=== PATIENT | male | born 1940 | race Caucasian/White ===

== ENCOUNTER 2020-02-08 21:07 | Observation (INO) ==
[2020-02-08 21:29] LABS: Basophils # (auto) 0.04 K/uL (0-0.2); Basophils % (auto) 0.4 %; Eosinophils # (auto) 0.22 K/uL (0-0.5); Eosinophils % (auto) 2.1 %; Hematocrit (blood only) 44.4 % (42-52); Hemoglobin 15.6 g/dL (14.0-18.0); Immature Granulocytes # (auto) 0.03 K/uL (0.00-0.02); Immature Granulocytes % (auto) 0.3 %; Mean Corpuscular Hemoglobin 36.1 pg (25-34); Mean Corpuscular Hgb Conc 35.1 g/dL (32-36); Mean Corpuscular Volume 102.8 fL (80-100); Mean Platelet Volume 11.5 fL (7.4-10.4); Monocytes # (auto) 1.43 K/uL (0.11-0.59); Monocytes % (auto) 13.5 %; Neutrophils # (auto) 5.61 K/uL (1.4-6.5); Neutrophils % (auto) 52.7 %; Platelet Count 171 K/uL (130-400); RDW Coefficient of Variation 12.1 % (11.5-14.5); Red Blood Count 4.32 M/uL (4.7-6.1); White Blood Count 10.63 K/uL (4.8-10.8)
[2020-02-08] MEDS ORDERED: NITROGLYCERIN 2% OINTMENT 30GM TUBE ONE (21:32)
[2020-02-08 21:37] LABS: iSTAT Creatinine 1.3 mg/dl (0.6-1.3); iSTAT Hemoglobin 15.6 g/dl (14.0-18.0); iSTAT Ionized Calcium 1.17 mmol/l (1.12-1.32); iSTAT Potassium 3.8 mmol/L (3.3-5.0)
[2020-02-08] MEDS ORDERED: NITROGLYCERIN 2% OINTMENT 30GM TUBE EXT STA (21:37)
[2020-02-08 21:40] LABS: Partial Thromboplastin Time 26.7 Seconds (21.0-31.0); Prothrombin Time 10.5 Seconds (9.0-12.0)
--- NOTE | 2020-02-08 21:47 | XRay Report ---
XR chest 1V portable CLINICAL HISTORY: Chest Pain pain COMPARISON STUDY: No previous studies for comparison. FINDINGS: The bones soft tissues and hemidiaphragms are normal. The cardiomediastinal silhouette is n ormal. The lungs are clear. The pulmonary vasculature is normal. IMPRESSION: Negative chest. ACT 112: Negative or not required by law. The above report was generated using voice recognition software. It may contain grammatical, syntax or spelling errors. Electronically signed by: Camacho Santana M.D. 02/08/2020 9:45 PM
[2020-02-08 21:52] LABS: Alanine Aminotransferase 48 U/L (12-78); Albumin Globulin Ratio 1.1 (0.9-2); Albumin Level 4.1 gm/dl (3.4-5.0); Alkaline Phosphatase 76 U/L (45-117); BUN Creatinine Ratio 10.3 (10-20); Bilirubin,Total 0.3 mg/dl (0.2-1); Blood Urea Nitrogen 12 mg/dl (7-18); Calcium 8.7 mg/dl (8.5-10.1); Carbon Dioxide 24 mmol/L (21-32); Chloride 108 mmol/L (98-107); Creatine Kinase MB 5.6 ng/ml (0.5-3.6); Creatinine Clr Calc Pharmacy 54.8 ml/min; Est GFR (African American) 68.1; Est GFR (Non-African American) 58.7; Globulin 3.7 gm/dl (2.5-4.0); Glucose 112 mg/dl (70-99); Lipase 117 U/L (73-393); Total Protein 7.8 gm/dl (6.4-8.2); Troponin I < 0.015 ng/ml (0-0.045)
[2020-02-08 21:58] LABS: Potassium 3.9 mmol/L (3.5-5.1); Sodium 140 mmol/L (136-145)
[2020-02-08 22:03] LABS: Aspartate Aminotransferase 27 U/L (15-37); Creatine Kinase 371 U/L (39-308)
--- NOTE | 2020-02-08 22:06 | Emergency Department Note ---
History of Present Illness General Chief complaint: Chest Pain Stated complaint: Chest Pain Time Seen by Provider: 02/08/20 21:16 Source: patient, EMS, RN notes reviewed and old records reviewed Mode of arrival: EMS Limitations: no limitations History of Present Illness Provider complaint: Chest pain Onset (ago): hour(s) 1 Location: chest Radiation: back Severity: severe Pain Consistency: + now resolved Maximum Pain Intensity: 3 Current Pain Intensity: 0 Quality: + aching Relieved By: + medication (Nitro) Exacerbated By: + movement Associated symptoms: + denies other symptoms; no diaphoresis, no fever/chills, no headaches, no nausea/vomiting and no shortness of breath Treatments prior to arrival: aspirin and other (Nitro) This is an 79-year-old male who presents emergency department complaining of chest pain that has been ongoing for the past 10 days. The patient reports he w ent to his primary care physician's office yesterday and was given meloxicam for the pain. This evening the patient ate dinner and took his meloxicam and then began experiencing severe 10 out of 10 pressure in his chest. The patient could not breathe due to the pain and thought he was having a heart attack. He denies any heart history whatsoever including hypertension. He reports he has never smoked and reports no family history. He was given nitro by EMS who was summoned. He reports becoming pain-free after be given the nitro. Upon arrival to the emergency department here the patient is pain-free. Home Medications Home Medications Medication Instructions Recorded Confirmed Type meloxicam 0 mg PO DAILY 02/08/20 02/08/20 History Allergies Allergy/AdvReac Type Severity Reaction Status Date / Time No Known Allergies Allergy Verified 02/08/20 21:59 Past Med/Surg History Social History Preferred Language: Northern Irish Feels Safe at Home: Yes Smoking Status: Never smoker Review of Systems A total of 10 systems reviewed and were otherwise negative Physical Exam Vital Signs Vital Signs - 24 hr 02/08/20 21:07 02/08/20 21:11 02/08/20 21:18 Temperature 36.7 C Temperature Source Oral Pulse Rate 92 H 87 87 Pulse Rate [Apical] Pulse Rate from SpO2 Sensor 88 87 Respiratory Rate 18 21 Respiratory Effort / Characteristics Non-Labored Respiratory Depth Normal Blood Pressure 174/105 H 174/105 H Blood Pressure [Left Arm] Blood Pressure Mean 128 128 Blood Pressure Mean [Left Arm] Pulse Oximetry 96 93 93 Oxygen Delivery Method Room Air Sepsis Recent Fever Within 48 Hours No Sepsis New/Unexplained Change in Mental Status No Sepsis Action Taken by Nursing No Action Required 02/08/20 21:20 02/08/20 21:30 02/08/20 22:00 Temperature Temperature Source Pulse Rate 86 81 Pulse Rate [Apical] Pulse Rate from SpO2 Sensor 81 76 Respiratory Rate 20 22 Respiratory Effort / Characteristics Respiratory Depth Blood Pressure 148/94 H 159/91 H Blood Pressure [Left Arm] Blood Pressure Mean 119 102 Blood Pressure Mean [Left Arm] Pulse Oximetry 94 91 Oxygen Delivery Method Room Air Sepsis Recent Fever Within 48 Hours Sepsis New/Unexplained Change in Mental Status Sepsis Action Taken by Nursing 02/08/20 22:30 02/08/20 23:13 02/08/20 23:59 Temperature Temperature Source Pulse Rate 84 Pulse Rate [Apical] 81 77 Pulse Rate from SpO2 Sensor Respiratory Rate 17 18 18 Respiratory Effort / Characteristics Respiratory Depth Blood Pressure 167/98 H Blood Pressure [Left Arm] 141/94 H 170/96 H Blood Pressure Mean 106 Blood Pressure Mean [Left Arm] 109 120 Pulse Oximetry 95 96 94 Oxygen Delivery Method Room Air Room Air Sepsis Recent Fever Within 48 Hours Sepsis New/Unexplained Change in Mental Status Sepsis Action Taken by Nursing VITAL SIGNS - Vital signs and nursing notes were reviewed. GENERAL - 79-year-old male appearing stated age who is in no acute distress. Communicates well with provider and answers questions appropriately. SKIN - Without rashes. HEAD - NC/AT. EYES - PERRL with EOMI bilaterally. Sclera anicteric. Palpebral conjunctiva pink and moist with no injection noted. EARS - No deformities of external structures noted on gross examination bilaterally. No pain elicited with palpation of the tragus bilaterally. External auditory canals without discharge or otorrhea. Tympanic membranes pearly bryant without retraction or bulging. No fluid or purulent material visualized behind the TM. Handle of malleus, umbo, cone of light, pars tensa/flaccid all easily visualized. NOSE - Midline and without cyanosis. No epistaxis or purulent drainage noted. S eptum midline without deviation or septal hematoma noted. MOUTH/OROPHARYNX - Without perioral cyanosis. Buccal mucosa pink and moist and without leukoplakia. Tongue midline with equal elevation of palate bilaterally. No tonsillar hypertrophy, erythema, or exudates noted. dentition noted. NECK - Neck with FROM. Supple to palpation. lymphadenopathy noted. No nuchal rigidity. LUNGS - Chest wall symmetric without accessory muscle use, intercostals retractions, or central cyanosis. Normal vesicular breath sounds CTA B/L. No wheezes, rales, or rhonchi appreciated. CARDIAC - RRR with S1/S2. No murmur, rubs, or gallops appreciated. ABDOMEN - Abdominal contour without pulsations or visible masses. BS normoactive all four quadrants. No tenderness, palpable masses, hepatosplenomegaly, or ascites noted. EXTREMITIES - No clubbing or peripheral cyanosis. No pretibial edema present. +3/5 radial, posterior tibial, and dorsalis pedis pulses palpated throughout. +5/5 strength noted in UE/LE bilaterally. NEUROLOGIC - Cranial nerves II through XII grossly intact. Sensory intact to light touch throughout. Patellar reflexes +2/4. PSYCH - A&Ox3 and cooperates fully with examiner. Pt is very pleasant and interacts well with examiner. Course Administered Medications Discontinued Medications Nitroglycerin (Nitro-Bid 2%) Confirm Administered Dose 18 inch .ROUTE .STK-MED ONE Stop: 02/08/20 21:33 Last Admin: 02/08/20 21:37 Dose: 1 inch Documented by: [id number] Nitroglycerin (Nitro-Bid 2%) 1 inch EXT NOW STA Stop: 02/08/20 21:38 Last Admin: 02/08/20 21:41 Dose: Not Given Documented by: [id number] Medical Decision Making Differential Diagnosis Cardiac ischemia, aortic dissection, pulmonary embolism, pneumothorax, pneumonia, pericarditis, myocarditis, esophageal rupture, GERD, cholecystitis, pancreatitis, musculoskeletal, as well as other pathologies. Medical Records Attestation: I reviewed the patient's medical records. Home Medications Current Medication List: was personally reviewed by me Laboratory Data Attestation: I reviewed the patient's lab results. Result diagrams: 02/08/20 21:20 02/08/20 21:20 Lab Results 02/08/20 02/08/20 02/08/20 Range/Units 21:20 21:20 21:20 WBC 10.63 (4.8-10.8) K/uL RBC 4.32 L (4.7-6.1) M/uL Hgb 15.6 (14.0-18.0) g/dL POC Hgb (14.0-18.0) g/dl Hct 44.4 (42-52) % POC Hct (42-52) % MCV 102.8 H (80-100) fL MCH 36.1 H (25-34) pg MCHC 35.1 (32-36) g/dL RDW Std Deviation 46.0 (36.4-46.3) fL RDW Coeff of Chapo 12.1 (11.5-14.5) % Plt Count 171 (130-400) K/uL MPV 11.5 H (7.4-10.4) fL Immature Gran % (Auto) 0.3 % Neut % (Auto) 52.7 % Lymph % (Auto) 31.0 % [place] % (Auto) 13.5 % Eos % (Auto) 2.1 % Baso % (Auto) 0.4 % Immature Gran # (Auto) 0.03 H (0.00-0.02) K/uL Neut # (Auto) 5.61 (1.4-6.5) K/uL Lymph # (Auto) 3.30 (1.2-3.4) K/uL [place] # (Auto) 1.43 H (0.11-0.59) K/uL Eos # (Auto) 0.22 (0-0.5) K/uL Baso # (Auto) 0.04 (0-0.2) K/uL PT 10.5 (9.0-12.0) Seconds INR 1.0 (0.9-1.1) APTT 26.7 (21.0-31.0) Seconds PTT Ratio 1.0 POC Sodium (135-144) mmol/L Sodium 140 (136-145) mmol/L POC Potassium (3.3-5.0) mmol/L Potassium 3.9 (3.5-5.1) mmol/L POC Chloride (101-112) mmol/L Chloride 108 H (98-107) mmol/L Carbon Dioxide 24 (21-32) mmol/L POC Total CO2 (24-31) mEq/l Anion Gap 9.0 (3-11) POC Anion Gap (16-25) mmol/L POC BUN (7-18) mg/dl BUN 12 (7-18) mg/dl Creatinine 1.16 (0.6-1.4) mg/dl POC Creatinine (0.6-1.3) mg/dl Est Cr Clr Drug Dosing 54.8 ml/min Est GFR ( Amer) 68.1 Est GFR (Non-Af Amer) 58.7 BUN/Creatinine Ratio 10.3 (10-20) Glucose 112 H (70-99) mg/dl POC Glucose (other) (70-99) mg/dl Calcium 8.7 (8.5-10.1) mg/dl POC Ioniz Calcium Darnell (1.12-1.32) mmol/l Total Bilirubin 0.3 (0.2-1) mg/dl AST 27 (15-37) U/L ALT 48 (12-78) U/L Alkaline Phosphatase 76 (45-117) U/L Total Creatine Kinase 371 H (39-308) U/L CK-MB (CK-2) 5.6 H (0.5-3.6) ng/ml CK/CKMB % Calc 1.5 (0-3.0) Troponin I < 0.015 (0-0.045) ng/ml Total Protein 7.8 (6.4-8.2) gm/dl Albumin 4.1 (3.4-5.0) gm/dl Globulin 3.7 (2.5-4.0) gm/dl Albumin/Globulin Ratio 1.1 (0.9-2) Lipase 117 (73-393) U/L 02/08/20 Range/Units 21:24 WBC (4.8-10.8) K/uL RBC (4.7-6.1) M/uL Hgb (14.0-18.0) g/dL POC Hgb 15.6 (14.0-18.0) g/dl Hct (42-52) % POC Hct 46 (42-52) % MCV (80-100) fL MCH (25-34) pg MCHC (32-36) g/dL RDW Std Deviation (36.4-46.3) fL RDW Coeff of Chapo (11.5-14.5) % Plt Count (130-400) K/uL MPV (7.4-10.4) fL Immature Gran % (Auto) % Neut % (Auto) % Lymph % (Auto) % [place] % (Auto) % Eos % (Auto) % Baso % (Auto) % Immature Gran # (Auto) (0.00-0.02) K/uL Neut # (Auto) (1.4-6.5) K/uL Lymph # (Auto) (1.2-3.4) K/uL [place] # (Auto) (0.11-0.59) K/uL Eos # (Auto) (0-0.5) K/uL Baso # (Auto) (0-0.2) K/uL PT (9.0-12.0) Seconds INR (0.9-1.1) APTT (21.0-31.0) Seconds PTT Ratio POC Sodium 142 (135-144) mmol/L Sodium (136-145) mmol/L POC Potassium 3.8 (3.3-5.0) mmol/L Potassium (3.5-5.1) mmol/L POC Chloride 105 (101-112) mmol/L Chloride (98-107) mmol/L Carbon Dioxide (21-32) mmol/L POC Total CO2 24 (24-31) mEq/l Anion Gap (3-11) POC Anion Gap 18.0 (16-25) mmol/L POC BUN 11 (7-18) mg/dl BUN (7-18) mg/dl Creatinine (0.6-1.4) mg/dl POC Creatinine 1.3 (0.6-1.3) mg/dl Est Cr Clr Drug Dosing ml/min Est GFR ( Amer) Est GFR (Non-Af Amer) BUN/Creatinine Ratio (10-20) Glucose (70-99) mg/dl POC Glucose (other) 112 H (70-99) mg/dl Calcium (8.5-10.1) mg/dl POC Ioniz Calcium Darnell 1.17 (1.12-1.32) mmol/l Total Bilirubin (0.2-1) mg/dl AST (15-37) U/L ALT (12-78) U/L Alkaline Phosphatase (45-117) U/L Total Creatine Kinase (39-308) U/L CK-MB (CK-2) (0.5-3.6) ng/ml CK/CKMB % Calc (0-3.0) Troponin I (0-0.045) ng/ml Total Protein (6.4-8.2) gm/dl Albumin (3.4-5.0) gm/dl Globulin (2.5-4.0) gm/dl Albumin/Globulin Ratio (0.9-2) Lipase (73-393) U/L Imaging Data Attestation: I personally reviewed and interpreted this imaging study as follows: Radiologist's Impression: [place] [phone] XRay Report Patient: RICH ORTEGA Admit Date: 02/08/20 MR#: [id number] Address1: [address] [place] [address] Acct ID:[id number] Address2: [place] [address] Date: 1940 [facility] Zip: [place] [address] Age: 79 Location: ED Sex: M Room/Bed: Att Phy: Diagnosis: Chest Pain Gabbie Phy: Devonte Damon DO Service Date: 02/08/20 Fam Phy: Interpreting Phy: Camacho Santana MD Admit Phy: Ordering Phy: Honorio Calderon MD cc: ~ XR chest 1V portable CLINICAL HISTORY: Chest Pain pain COMPARISON STUDY: No previous studies for comparison. FINDINGS: The bones soft tissues and hemidiaphragms are normal. The ca rdiomediastinal silhouette is normal. The lungs are clear. The pulmonary vasculature is normal. IMPRESSION: Negative chest. ACT 112: Negative or not required by law. The above report was generated using voice recognition software. It may contain grammatical, syntax or spelling errors. Electronically signed by: Camacho Santana M.D. 02/08/2020 9:45 PM Dictated: 02/08/202144 Transcribed: 02/08/202144 ECG Data Attestation: I personally reviewed and interpreted this ECG as follows: Indication: chest pain Rate (beats per minute): 87 Rhythm: normal sinus Findings: no ST depression and no ST elevation Comparison ECG Date: from (07/15/2016) Change: no significant change Blood Pressure Blood Pressure Findings: Elevated blood pressure Blood Pressure Disposition: further management by hospitalist MARSHA Narrative Patient was seen and evaluated as above in room B6. Review was performed of nursing notes and vital signs. I did review pertinent previous visits and patient history. After obtaining a thorough history and physical examination the above work up was performed. While in the department, I personally reevaluated the patient several times and each time the patient was found to be resting comfortably. An order was placed for continuous cardiac monitoring. The monitor shows a rate of 77 with Normal SInus rhythm. I attest that I have personally reviewed the patient medication list. I attest that I have reviewed the patient's blood pressure and it was found to be elevated GCS: 15 The patient was evaluated during the global COVID-19 pandemic, and that diagnosis was suspected/considered upon their initial presentation. Their evaluation, treatment and testing was consistent with current guidelines for patients who present with complaints or symptoms that may be related to COVID- 19. This is a 79-year-old male who presented to the emergency department with chest pain. Chest pain was relieved by nitro. Due to the nature of the patient's pain I did discuss the case with the hospitalist who did agree to admit the patient. Patient is in agreement with the treatment plan. Impression & Plan Chest pain Discharge Plan Visit Data Chief Complaint: Chest Pain Stated Complaint: Chest Pain ED Provider: Honorio Calderon Discharge Problem: Chest pain Forms Stand Alone Forms: Vimty Prescriptions Prescriptions: No Action meloxicam 7.5 mg Tablet 0 mg PO DAILY RF: 0 Discharge Problem: Chest pain Qualifiers: Chest pain type: unspecified Qualified Code(s): R07.9 - Chest pain, unspecified
--- NOTE | 2020-02-09 00:40 | History & Physical Report ---
Date of Service February 09, 2020 Assessment & Plan Admission and Anticipated Discharge Date Admission Date: 79 yo previously healthy male w/ resolved acute severe chest pain w/o radiation or associated nausea or shortness of breath after taking Meloxicam, w/ negative troponin. Chest pain is likely of GI source given Meloxicam, Aleve, Advil, and alcohol use, no association with exertion and reassuring troponin. Continue to monitor for ACS. PE less likely due to Well's score of 0 and resolution of chest pain. Chest pain - observation w/ serial Troponin, and monitor for chest pain - 01/07/19 exercise stress test showed normal ECG treadmill test predicted a low p robability of significant CAD - CKMB elevated at 5.6, w/ nl. CK/CKMB% at 1.5, potentially due to recent exercise - ECHO to further evaluate orthopnea and chest pain - Well's score 0 Chronic progressive orthopnea, potentially deconditioning - negative chest XR - ECHO as above - continue to monitor not concerned for COVID - denies symptoms of cough, fevers, and diarrhea - no recent travel - no sick contacts DVT: lovenox Diet: regular Code: full History of Present Illness Chief Complaint: Chest pain Primary Care Provider: Devonte Damon 79 y/o M presenting with chest pain that has been occurring for the last 10 days that was not severe at the center of his chest that would come and go. He had been taking 1 Aleve a day to treat this pain. He also takes Advil PM every nightHe decided to call his doctor and since the pain did not resolve. He was prescribed Meloxicam today. He had soup and toast for dinner, took his Meloxicam and went to bed at 6:30PM. He woke up at approximately 7:20 w/ 8/10 sharp and in the left side of his chest. He did not have any radiation down his arm or up his jaw. The pain was worse with deep breathing and had no other aggravating factors. His called EMS at 8:15 and they arrived at 8:30. When EMS arrived he had resolution of chest pain. He is currently pain free. He has been drinking 2 drinks w/ vodka every night. Mr. Mack had gone biking twice over the weekend and did not have any chest pain. He brought up that he has had chronic pulmonary issues that have been progressively worsening. He sleeps with 2 pillows and has trouble breathing when he lies down. He does not have any lower leg swelling. When he coughs he can have some sputum and this does have some blood in it. 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 Family history: Father: parmjit and heart attack at 70 and 73 Allergies: seasonal Allergies Allergy/AdvReac Type Severity Reaction Status Date / Time No Known Allergies Allergy Verified 02/08/20 21:59 Home Medications Home Medications Medication Instructions Recorded Confirmed Type meloxicam 0 mg PO DAILY 02/08/20 02/08/20 History Past Med/Surg History Social History Preferred Language: Khmer Communication Ability: Effective [employer] Required: No Beliefs That Will Affect Care: None Current Living Situation: Significant Other Other Information That Helps Us Care for You: No Feels Safe at Home: Yes Safety Concerns: Feels Safe At This Time Smoking Status: Never smoker Do You Dip or Chew Tobacco: No ; Second Hand Exposure: No ; Hx Alcohol Use: Yes Alcohol type: hard liquor Hx Substance Use: No Review of Systems Review of Systems: Constitutional: denies fever, chills, fatigue, night sweats Neurologic: denies syncope, focal weakness, numbness, tingling Cardiac: denies hx. of murmur, palpitations, leg edema admits chest pain Pulmonary: denies cough, shortness of breath, orthopnea GI: denies diarrhea admits constipation : denies urinary frequency, urgency, dysuria Physical Exam Constitutional: well developed and well nourished; no acute distress Eyes: PERRL, conjunctivae normal, anicteric sclerae ENMT: external ear and nose normal, oropharynx normal Neck: normal visual inspection Respiratory: normal respiratory effort, lungs clear to auscultation Cardiovascular: RRR, no murmur, no edema Chest (Breasts): Chest: normal inspection of chest Additional Comments: non tender to palpation Gastrointestinal (Abdomen): normal bowel sounds, soft, nontender, no hepatosplenomegaly Musculoskeletal: no cyanosis or clubbing, extremities motor strength 5/5 Skin: no rashes, warm and dry Psychiatric: A+Ox3, euthymic affect Results & Data Results & Data ([facility]) Vital Signs (Past 12 Hours) Vital Signs Temp Pulse Pulse Resp BP BP Pulse Ox 02/09/20 00:19 79 18 158/98 H 93 02/08/20 23:59 77 18 170/96 H 94 02/08/20 23:13 81 18 141/94 H 96 02/08/20 22:30 84 17 167/98 H 95 02/08/20 22:00 81 22 159/91 H 91 02/08/20 21:30 86 20 148/94 H 94 02/08/20 21:18 87 93 02/08/20 21:11 87 21 174/105 H 93 02/08/20 21:07 36.7 C 92 H 18 174/105 H 96 Code Status & VTE Plan Code Status Full code VTE Prophylaxis Plan VTE Prophylaxis will be ordered: Yes Supervising Physician Co-Signing Physician Notes Patient seen and examined, chart reviewed, case discussed with Dr. Chou and I agree with his assessment and p;ashwin as documented above. Briefly, patient is an 79yo C male, healthy/active/independent with no known cardiac risk factors presenting with acute episode of CP, diaphoresis after taking Meloxicam On exam he is afebrile, hypertensive, NAD Skin - intact HEENT - NC/AT, PERRL, Neck supple, No JVD or bruits Heart - +S1/S2, regular, no m/r/g, no CW pain Lungs - CTA Abd - +BS, soft, NT/ND, no epigastric pain Ext - No edema Neuro - non focal Labs and images reviewed Assessment/Plan: -Monitor overnight -Trend troponin -Check 2D echo in AM -Remainder of plan as above Resident Activity Tracking Resident Involvement: Resident Care Provided Care Provided: Adult Hospital Medicine
[2020-02-09] MEDS ORDERED: POLYETHYLENE (MIRALAX) 17 GM PACK PO PRN (01:33)
[2020-02-09] MEDS ORDERED: ALUMINUM/MAGNESIUM SUSP 30 ML UDC PO PRN (01:33)
[2020-02-09] MEDS ORDERED: MAGNESIUM HYDROXIDE SUSP 30 ML UDC PO PRN (01:33)
[2020-02-09] MEDS ORDERED: ONDANSETRON INJ 2 MG/ML 2 ML VIAL IV PRN (01:33)
--- NOTE | 2020-02-09 01:42 | Billing Data ---
Date of Service February 09, 2020 Coding Level of Care Code 63402 OBS Care - Level 2
[2020-02-09] MEDS ORDERED: ACETAMINOPHEN 500 MG TAB PO PRN (01:55)
[2020-02-09 04:06] LABS: Basophils # (auto) 0.03 K/uL (0-0.2); Basophils % (auto) 0.3 %; Eosinophils # (auto) 0.08 K/uL (0-0.5); Eosinophils % (auto) 0.7 %; Hemoglobin 14.4 g/dL (14.0-18.0); Immature Granulocytes # (auto) 0.03 K/uL (0.00-0.02); Immature Granulocytes % (auto) 0.3 %; Lymphocytes # (auto) 1.74 K/uL (1.2-3.4); Lymphocytes % (auto) 16.2 %; Mean Corpuscular Hgb Conc 34.3 g/dL (32-36); Mean Corpuscular Volume 101.9 fL (80-100); Mean Platelet Volume 11.3 fL (7.4-10.4); Monocytes # (auto) 1.17 K/uL (0.11-0.59); Monocytes % (auto) 10.9 %; Neutrophils # (auto) 7.67 K/uL (1.4-6.5); Neutrophils % (auto) 71.6 %; Platelet Count 161 K/uL (130-400); RDW Coefficient of Variation 12.4 % (11.5-14.5); RDW Standard Deviation 45.7 fL (36.4-46.3); Red Blood Count 4.12 M/uL (4.7-6.1); White Blood Count 10.72 K/uL (4.8-10.8)
[2020-02-09 04:24] LABS: Alanine Aminotransferase 42 U/L (12-78); Albumin Level 3.8 gm/dl (3.4-5.0); Aspartate Aminotransferase 26 U/L (15-37); BUN Creatinine Ratio 9.3 (10-20); Blood Urea Nitrogen 11 mg/dl (7-18); Calcium 8.5 mg/dl (8.5-10.1); Carbon Dioxide 26 mmol/L (21-32); Chloride 108 mmol/L (98-107); Est GFR (African American) 69.5; Glucose 114 mg/dl (70-99); Potassium 3.9 mmol/L (3.5-5.1); Sodium 138 mmol/L (136-145)
[2020-02-09 04:29] LABS: Albumin Globulin Ratio 1.1 (0.9-2); Alkaline Phosphatase 62 U/L (45-117); Bilirubin,Total 0.4 mg/dl (0.2-1); Globulin 3.4 gm/dl (2.5-4.0); Total Protein 7.2 gm/dl (6.4-8.2); Troponin I < 0.015 ng/ml (0-0.045)
--- NOTE | 2020-02-09 07:21 | Hospitalist Progress Note ---
Date of Service February 09, 2020 Assessment & Plan (1) Chest pain: Pt without significant past history, presented with chest pain, negative trop x2, ecg without acute changes, pending echo. may consider stress testing Admission and Anticipated Discharge Date Admission Date: February 09, 2020 Results & Data Results & Data ([facility]) Vital Signs (Past 12 Hours) Vital Signs Temp Pulse Pulse Pulse Resp BP BP 02/09/20 04:04 84 02/09/20 03:19 97.7 F 77 18 151/85 H 02/09/20 01:53 97.5 F L 80 18 181/87 H 02/09/20 01:01 77 18 177/96 H 02/09/20 00:19 79 18 158/98 H 02/08/20 23:59 77 18 170/96 H 02/08/20 23:13 81 18 141/94 H 02/08/20 22:30 84 17 167/98 H 02/08/20 22:00 81 22 159/91 H 02/08/20 21:30 86 20 148/94 H 02/08/20 21:18 87 02/08/20 21:11 87 21 174/105 H 02/08/20 21:07 98.1 F 92 H 18 174/105 H Pulse Ox 02/09/20 04:04 02/09/20 03:19 94 02/09/20 01:53 93 02/09/20 01:01 94 02/09/20 00:19 93 02/08/20 23:59 94 02/08/20 23:13 96 02/08/20 22:30 95 02/08/20 22:00 91 02/08/20 21:30 94 02/08/20 21:18 93 02/08/20 21:11 93 02/08/20 21:07 96 PG Care Time/CCT Total # of Minutes Spent Total Time Spent with Patient: Total time spent is greater than 50% in coordination of care (as documented) at patient's floor/unit and/or counseling patient: Coding Diagnoses Chest pain R07.9 Chest pain type: unspecified (1) Chest pain Chest pain type: unspecified Qualified Code(s): R07.9 - Chest pain, unspecified
[2020-02-09] MEDS ORDERED: ENOXAPARIN INJ 40 MG/0.4 ML SYR SQ SCH (08:00)
--- NOTE | 2020-02-09 08:35 | Electrocardiogram Report ---
Test Reason : Blood Pressure : / mmHG Vent. Rate : 087 BPM Atrial Rate : 087 BPM P-R Int : 180 ms QRS Dur : 134 ms QT Int : 400 ms P-R-T Axes : 047 015 022 degrees QTc Int : 481 ms Poor data quality, interpretation may be adversely affected Normal sinus rhythm Right bundle branch block Abnormal ECG When compared with ECG of 15-JUL-2016 08:16, No significant change Confirmed by Kirill Escobedo ([id number]) on 02/09/2020 8:35:39 AM Referred By: REFERRED SELF Confirmed By:Kirill Escobedo
--- NOTE | 2020-02-09 11:32 | XCELERA ---
[id number]
--- NOTE | 2020-02-09 16:53 | Discharge Summary ---
Date of Service February 09, 2020 Admission HPI Per Admitting Provider 79 y/o M presenting with chest pain that has been occurring for the last 10 days that was not severe at the center of his chest that would come and go. He had been taking 1 Aleve a day to treat this pain. He also takes Advil PM every nightHe decided to call his doctor and since the pain did not resolve. He was prescribed Meloxicam today. He had soup and toast for dinner, took his Meloxicam and went to bed at 6:30PM. He woke up at approximately 7:20 w/ 8/10 sharp and in the left side of his chest. He did not have any radiation down his arm or up his jaw. The pain was worse with deep breathing and had no other aggravating factors. His called EMS at 8:15 and they arrived at 8:30. When EMS arrived he had resolution of chest pain. He is currently pain free. He has been drinking 2 drinks w/ vodka every night. Mr. Mack had gone biking twice over the weekend and did not have any chest pain. He brought up that he has had chronic pulmonary issues that have been progressively worsening. He sleeps with 2 pillows and has trouble breathing when he lies down. He does not have any lower leg swelling. When he coughs he can have some sputum and this does have some blood in it. 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 Lungs are clear to auscultation and appear unlabored Cardiac exam, Rhythm is regular.. No murmurs, rubs or gallops. Abdominal exam reveals normal bowel sounds, soft non tender, no masses Extremities are nonedematous and both pedal pulses are normal. Neurologic exam is alert and oriented, no focal loss of strength or sensation Skin is without bruises or rashes Psychologically is without concerns for anxiety or depression Discharge Data Allergies Allergy/AdvReac Type Severity Reaction Status Date / Time No Known Allergies Allergy Verified 02/08/20 21:59 Consultations 02/08/20 22:53 ED Decision to Admit Stat Hospital Course (1) Chest pain: Pt has resolution of his chest pain, he had a stress test in january 2019 that was [place] protocol with appropriate target heart rate reached. Since this patient has a recent negative stress test and had negative troponins and cardiograms with associated chest discomfort it would be the understanding that if he had something that should create a more defined either biomarker or electrocardiographic change. Since the patient symptoms began after he ate a meal and was recumbent is more likely to be gastrointestinal. Patient is able ambulate in the unit without difficulty given a stress test was slightly more than 1 year ago will not repeat it at this time patient will be begun on Shannon fate for 1 week and with omeprazole concurrently and follow-up with primary care doctor. Total Time Total Time Spent Total Time Spent (In Minutes): It required greater than 30 minutes to prepare this patient for discharge Discharge Plan Discharge Items Patient Disposition: Home - Self-Care Reason For Visit: Chest Pain Discharge Diagnosis: non typical chest pain Activity: Resume your previous activity Non-emergency contact: Primary Care Provider Call non-emergency contact if: you have any medication questions and your symptoms worsen Follow-up/Referrals: Devonte Damon [Primary Care Provider] - Diet: Regular Addtl Attending Provider Instructions: please avoid laying down after eating for at least one hour to one and a half hours please avoid taking motrin or meloxicam for at least a week please follow up with DR Damon in one week, even if by tele medicine Pending Studies at Discharge: No Stand-Alone Forms: My [facility] Dat[employer], Smoking Cessation Medications and DC Order Prescriptions: New sucralfate [Carafate] 100 mg/mL suspension 10 ml PO TID 5 Days Qty: 150 RF: 0 omeprazole 20 mg capsule,delayed release(DR/EC) 20 mg PO DAILY 28 Days Qty: 28 RF: 0 Discontinued meloxicam 7.5 mg Tablet 0 mg PO DAILY RF: 0 Discharge Orders: Discharge Order (Routine); Ordered 02/09/20 Ordered By: Elio Brown/Other Patient Handouts: GERD Lifestyle Changes Admission Data Admit Date/Time: 02/09/20 00:41 Attending Provider: Elio Antunez Admit Provider: Marcial Chou Primary Care Provider: Devonte Damon Other Providers: Minoo Betancourt Other Interventions: Discharge Summary Assessment (RN) Last Done: 02/09/20 14:19 DC Date/Time DO NOT enter until pt leaves facility: 02/09/20 15:17 Coding Level of Care Code 19752 OBS Care - Discharge Diagnoses Chest pain R07.9 Chest pain type: unspecified
== END 2020-02-09 15:17 | disposition home or self-care (01) ==
LOC: ED 21:07 → 2N 21:07 → SUATTDRO 02-09 00:41 → 2N 02-09 01:16
DX: R07.89 Other chest pain